=== PATIENT | male | born 1960 | race Caucasian/White ===

== ENCOUNTER → 2020-08-23 | Outpatient (CLI) | payer OTHER ==
[~2020-08-23] MED LIST: CEFAZOLIN 2 GM/D5W RTU 2 GM/50 ML RTUPB IV PRN; LACTATED RINGERS 1000 ML IV PRN
[2020-08-23 11:36] VITALS: BP 120/78
[2020-08-23 13:36] LABS: HEMATOCRIT 35.3 % (37.9-51.0); HEMOGLOBIN 12.5 g/dL (13.5-17.0); MEAN CORPUSCULAR HEMOGLOBIN 32.3 pg (27.0-33.4); MEAN CORPUSCULAR HGB CONC 35.4 g/dL (32.0-36.0); MEAN CORPUSCULAR VOLUME 91 fl (80-97); PLATELET COUNT 316 10^3/uL (150-450); RED BLOOD COUNT 3.86 10^6/uL (4.35-5.55); RED CELL DISTRIBUTION WIDTH 14.4 % (11.5-14.0); WHITE BLOOD COUNT 8.3 10^3/uL (4.0-10.5)
[2020-08-23 13:56] LABS: URINE AMPHETAMINES SCREEN NEGATIVE; URINE BARBITURATES SCREEN NEGATIVE; URINE COCAINE SCREEN NEGATIVE; URINE MARIJUANA (THC) SCREEN NEGATIVE; URINE METHADONE SCREEN NEGATIVE; URINE PHENCYCLIDINE SCREEN NEGATIVE
[2020-08-23 13:59] LABS: ANION GAP 13 (5-19); BLOOD UREA NITROGEN 24 mg/dL (7-20); CALCIUM 9.5 mg/dL (8.4-10.2); CARBON DIOXIDE 25 mmol/L (22-30); CHLORIDE 98 mmol/L (98-107); GLUCOSE 100 mg/dL (75-110); POTASSIUM 4.5 mmol/L (3.6-5.0)
[2020-08-23 14:02] LABS: APPEARANCE,URINE CLEAR; BILIRUBIN,URINE NEGATIVE (NEGATIVE); COLOR,URINE YELLOW; GLUCOSE, URINE NEGATIVE (NEGATIVE); KETONES,URINE NEGATIVE (NEGATIVE); LEUKOCYTE ESTERASE,URINE NEGATIVE (NEGATIVE); NITRITE,URINE NEGATIVE (NEGATIVE); PROTEIN,URINE NEGATIVE (NEGATIVE); URINE SPECIFIC GRAVITY 1.015; UROBILINOGEN,URINE NEGATIVE mg/dL (<2.0)
[2020-08-23 14:11] LABS: ALCOHOL < 10 mg/dL (NONE DETECTED)
--- NOTE | 2020-08-23 14:24 | RADIOLOGY REPORT (SQ) ---
EXAM DESCRIPTION: CHEST PA/LATERAL IMAGES COMPLETED DATE/TIME: 08/23/2020 1:03 pm REASON FOR STUDY: PRE-OP COMPARISON: None. EXAM PARAMETERS: NUMBER OF VIEWS: two views TECHNIQUE: Digital Frontal and Lateral radiographic views of the chest acquired. RADIATION DOSE: NA LIMITATIONS: none FINDINGS: LUNGS AND PLEURA: No opacities, masses or pneumothorax. No pleural effusion. MEDIASTINUM AND HILAR STRUCTURES: No masses or contour abnormalities. HEART AND VASCULAR STRUCTURES: Heart normal size. No evidence for failure. BONES: No acute findings. HARDWARE: None in the chest. OTHER: No other significant finding. IMPRESSION: 1. NO SIGNIFICANT RADIOGRAPHIC FINDING IN THE CHEST. TECHNICAL DOCUMENTATION: JOB ID: [id number] 2010 [employer]- All Rights Reserved Reading location - IP/workstation name: [email or web address]
[2020-08-23 14:41] LABS: URINE BENZODIAZEPINES SCREEN UNCONFIRMED POSITIVE
--- NOTE | 2020-08-23 18:06 | EKG REPORT ---
SEVERITY:- NORMAL ECG - SINUS RHYTHM : Confirmed by: Booker Mathews MD 23-Aug-2020 18:06:15
[2020-08-28 12:36] LABS: BENZODIAZEPINE CONFIRMATION UR Negative (Cutoff=300)
== END ==
LOC: OD 12:50 → EDSTATUS 08-29 09:30
PROVIDERS: ATTEND Orthopaedic Surgery
DX: Z01.810 Encounter for preprocedural cardiovascular examination (principal); Z01.812 Encounter for preprocedural laboratory examination; Z20.828 Contact with and (suspected) exposure to other viral communicable diseases; Z01.818 Encounter for other preprocedural examination; Z02.83 Encounter for blood-alcohol and blood-drug test; R74.8 Abnormal levels of other serum enzymes
CPT/HCPCS: 93005; 36415; 80307 ×2; 85027; 87635; 80048; 81001; 87070; 83036; 80361; 71046; 93010; G0480 ×2; C9803

== ENCOUNTER 2020-10-03 05:22 | Inpatient (IN) | payer OTHER ==
--- NOTE | 2020-09-28 13:07 | RADIOLOGY REPORT (SQ) ---
EXAM DESCRIPTION: CHEST 2 VIEWS IMAGES COMPLETED DATE/TIME: 09/28/2020 12:53 pm REASON FOR STUDY: PRE OP TESTING COMPARISON: PA and lateral views of the chest from 08/23/2020. EXAM PARAMETERS: NUMBER OF VIEWS: Two views. TECHNIQUE: PA and lateral views of the chest were obtained. RADIATION DOSE: NA LIMITATIONS: None. FINDINGS: LUNGS AND PLEURA: No consolidation, pleural effusion or pneumothorax. MEDIASTINUM AND HILAR STRUCTURES: No mediastinal or hilar contour abnormality. HEART AND VASCULAR STRUCTURES: The cardiac silhouette and pulmonary vasculature are within normal roper its. BONES: No acute findings. HARDWARE: None in the chest. OTHER: No other finding. IMPRESSION: No acute cardiopulmonary process. TECHNICAL DOCUMENTATION: JOB ID: [id number] 2010 [email or web address]- All Rights Reserved Reading location - IP/workstation name: [email or web address]
--- NOTE | 2020-09-28 13:24 | EKG REPORT ---
SEVERITY:- BORDERLINE ECG - SINUS RHYTHM BORDERLINE T ABNORMALITIES, ANT-LAT LEADS : Confirmed by: Angeline Machado 28-Sep-2020 13:23:25
[2020-09-28 13:32] LABS: HEMATOCRIT 39.7 % (37.9-51.0); HEMOGLOBIN 13.2 g/dL (13.5-17.0); MEAN CORPUSCULAR HEMOGLOBIN 30.3 pg (27.0-33.4); MEAN CORPUSCULAR HGB CONC 33.3 g/dL (32.0-36.0); MEAN CORPUSCULAR VOLUME 91 fl (80-97); PLATELET COUNT 290 10^3/uL (150-450); RED BLOOD COUNT 4.36 10^6/uL (4.35-5.55); RED CELL DISTRIBUTION WIDTH 13.5 % (11.5-14.0)
[2020-09-28 13:39] LABS: APPEARANCE,URINE CLEAR; BILIRUBIN,URINE NEGATIVE (NEGATIVE); COLOR,URINE YELLOW; GLUCOSE, URINE NEGATIVE (NEGATIVE); KETONES,URINE NEGATIVE (NEGATIVE); LEUKOCYTE ESTERASE,URINE NEGATIVE (NEGATIVE); NITRITE,URINE NEGATIVE (NEGATIVE); PROTEIN,URINE NEGATIVE (NEGATIVE); URINE SPECIFIC GRAVITY 1.016; UROBILINOGEN,URINE NEGATIVE mg/dL (<2.0)
[2020-09-28 13:56] LABS: URINE AMPHETAMINES SCREEN NEGATIVE; URINE BARBITURATES SCREEN NEGATIVE; URINE BENZODIAZEPINES SCREEN NEGATIVE; URINE COCAINE SCREEN NEGATIVE; URINE MARIJUANA (THC) SCREEN NEGATIVE; URINE METHADONE SCREEN NEGATIVE; URINE PHENCYCLIDINE SCREEN NEGATIVE
[2020-09-28 14:02] LABS: ANION GAP 8 (5-19); BLOOD UREA NITROGEN 22 mg/dL (7-20); CALCIUM 9.7 mg/dL (8.4-10.2); CARBON DIOXIDE 30 mmol/L (22-30); CHLORIDE 99 mmol/L (98-107); GLUCOSE 116 mg/dL (75-110); POTASSIUM 5.1 mmol/L (3.6-5.0)
[2020-09-28 14:06] LABS: ALCOHOL < 10 mg/dL (NONE DETECTED)
[~2020-10-03 05:22] MED LIST changes: +CEFAZOLIN 2 GM/D5W RTU 2 GM/50 ML RTUPB IV ONE
[2020-10-03 06:37] LABS: POTASSIUM 4.5 mmol/L (3.6-5.0)
[2020-10-03] MEDS ORDERED: HEPARIN SOD (PORCINE) 1,000 UNIT/ML 10 ML VIAL ONE (06:48)
[2020-10-03] MEDS ORDERED: BUPIVACAINE HCL 0.5 % INJ/PF 30 ML SDV ONE (06:48)
[2020-10-03] MEDS ORDERED: BACITRACIN INJ 50,000 UNIT VIAL ONE (06:49)
[2020-10-03] MEDS ORDERED: MINERAL OIL (STERILE) 10 ML VIAL ONE (06:49)
[2020-10-03] MEDS ORDERED: MIDAZOLAM 2 MG/2 ML INJ ONE (07:03)
[2020-10-03] MEDS ORDERED: MORPHINE SULFATE 10 MG/ML INJ ONE ×2 (07:03→12:08)
[2020-10-03] MEDS ORDERED: PROPOFOL INJ 200 MG/20 ML VIAL IV ONE (07:03)
[2020-10-03] MEDS ORDERED: FENTANYL CITRATE INJ/PF 250 MCG/5 ML AMPULE ONE (07:03)
[2020-10-03] MEDS ORDERED: BUPIVACAINE INJ/PF LIPOSOME/PF 266 MG/20 ML SDV ONE (08:49)
[2020-10-03] MEDS ORDERED: FENTANYL CITRATE INJ/PF 100 MCG/2 ML AMPUL IV PRN ×3 (09:26)
[2020-10-03] MEDS ORDERED: DIPHENHYDRAMINE HCL 50 MG/ML VIAL IV PRN (09:26)
[2020-10-03] MEDS ORDERED: MORPHINE SULFATE 10 MG/ML INJ IV PRN ×2 (09:26→16:30)
[2020-10-03] MEDS ORDERED: PROMETHAZINE HCL INJ 25 MG/1 ML VIAL IV PRN ×2 (09:26)
[2020-10-03] MEDS ORDERED: MEPERIDINE HCL/PF INJ 25 MG/1 ML DISP.SYRIN IV PRN (09:26)
[2020-10-03] MEDS: METHOCARBAMOL INJ/PF 1000 MG/10 ML SDV IV ONE ×2 (10:15→15:55)
--- NOTE | 2020-10-03 10:17 | Operative Report ---
Operative Report DATE OF SURGERY: 10/03/20 PREOPERATIVE DIAGNOSIS: L5-S1 spondylolisthesis. L5-S1 stenosis. L5-S1 instab ility. L5-S1 degenerative disc disease. Back pain and lumbar radiculitis. POSTOPERATIVE DIAGNOSIS: L5-S1 spondylolisthesis. L5-S1 stenosis. L5-S1 instability. L5-S1 degenerative disc disease. Back pain and lumbar radiculitis. S/P L5-S1 anterior lateral interbody fusion robotically assisted as well as posterior lateral fusion L5-S1 robotically assisted with interbody spacer at L5-S1 and instrumentation L5-S1 and left-sided iliac crest aspiration for bone marrow concentration left iliac crest through a separate incision as well as allografting OPERATION: L5-S1 anterior lateral interbody fusion robotically assisted as well as posterior lateral fusion L5-S1 robotically assisted with interbody spacer at L5-S1 and instrumentation L5-S1 and left-sided iliac crest aspiration for bone marrow concentration left iliac crest through a separate incision as well as allografting SURGEON: TARSHA LOWE SWEAT BOX ATTENDANT: KYA DOWNEY ANESTHESIA: GA COMPLICATIONS: None ESTIMATED BLOOD LOSS: 100 cc INTRAOPERATIVE FINDINGS: Solera Voyager screws 6.5 x 50 mm screws x2 at L5 and 6.5 x 40 mm screws x2 at S1 40 mm reinaldo on the right 40 mm reinaldo on the left. Calcium triphosphate DBL arise bone matrix interbody spacer at L5-S1 PROCEDURE: Patient is brought into the room placed under general anesthesia received 2 g of Ancef within 1 hour of cut time was placed on the Rey table medial epicondyles and axillary areas are well-padded. Neuro monitoring leads for SSEP and cranial motor testing are placed on the patient as well as a Grande catheter is placed preoperatively. After appropriate surgical timeout the amBX robot is utilized and on the right posterior superior iliac spine a pin is placed and attached to the robot. After obtaining registration imaging in the AP and oblique position and verification 6.5 x 50 mm screws x2 at L5 and 6.5 x 40 mm screws x2 at S1 screws are inserted using portal incisions on the right and the left at L5 and S1 bilaterally. Left iliac crest is aspirated at 2 different sites total of 50 cc of bone marrow aspirate are obtained and concentrated to be used an interbody spacer with the allograft. Attention was then paid to the left sided anterior lateral portal for entry into the disc space which is carried out under navigation guidance upon verification also with x-rays and then stimulation thresholds greater than 37 mA. Upon inserting the portal into the disc space at L5-S1 fluoroscopy was used to verify the position as it did also to verify the screws position. Endplate lyn and curettes and brushes are used to carry out a complete discectomy then the verify balloon is inserted to verify good contact with the endplates. Then the appropriate size mesh spacer is introduced into the interbody. The mesh spacer is soaked in bone marrow aspirate concentrate and is filled with bone graft showing good correction and good containment within the disc space at L5-S1. Upon neuro monitoring testing and cranial motor testing found to be stable then the portal is removed anterior laterally and attention is then paid to the placement of the rods upon using the caliper device the appropriate length rods were determined to be 40 mm rods on the right and on the left those are passed down and locked into position and final tightened. Then the tabs are removed and the portals are irrigated with copious amounts of irrigation and the posterior superior iliac spine pin connected to the robot is removed as well and the deep and superficial tissues were infiltrated with 1.3% Exparel 20 cc mixed with 20 cc of 0.5% bupivacaine plain. The portals are closed using 2-0 Vicryl and then Dermabond and Steri-Strips then 4 x 4's were used to cover the wounds on the right and the left and dressed with coverall tape. Please note that this procedure could not be done without the assistance of Sylvester Day working to assist with the placement of the screws positioning of the robot carrying out the aspiration through the left side iliac crest aspiration please also note that the iliac crest aspiration is carried out on the left side through a separate incision. Sylvester Day was instrumental throughout this whole process and I could not have done this procedure without his assistance as mentioned above.
[2020-10-03] MEDS ORDERED: METHOCARBAMOL INJ/PF 1000 MG/10 ML SDV ONE (10:18)
--- NOTE | 2020-10-03 10:32 | RADIOLOGY REPORT (SQ) ---
EXAM DESCRIPTION: L SPINE 2 VIEWS; NO CHG FLUORO IMAGES COMPLETED DATE/TIME: 10/03/2020 10:20 am REASON FOR STUDY: LUMBAR FUSION ASSISTED WITH FLUORO IN OR M43.16 SPONDYLOLISTHESIS, LUMBAR REGION M54.40 LUMBAGO WITH SCIATICA, UNSPECIFIED SIDE M51.36 OTHER INTERVERTEBRAL DISC DEGENERATION, LUMBA R REGION COMPARISON: None. FLUOROSCOPY TIME: 2 minutes. 6 images submitted to PACS. TECHNIQUE: Intra-operative fluoroscopic images of the lumbar spine were obtained during a transpedic ular fusion of L5-S1. NUMBER OF IMAGES: 6 LIMITATIONS: None. FINDINGS: Refer to the separate operative report. IMPRESSION: IMAGE(S) OBTAINED DURING PROCEDURE. COMMENT: Quality ID [id number]: Final reports for procedures using fluoroscopy that document radiation exp osure indices, or exposure time and number of fluorographic images (if radiation exposure indices are not available) Please consult full operative report of the attending physician for description of the procedure. TECHNICAL DOCUMENTATION: JOB ID: [id number] 2010 [employer]- All Rights Reserved Reading location - IP/workstation name: [email or web address]
--- NOTE | 2020-10-03 10:32 | RADIOLOGY REPORT (SQ) ---
EXAM DESCRIPTION: L SPINE 2 VIEWS; NO CHG FLUORO IMAGES COMPLETED DATE/TIME: 10/03/2020 10:20 am REASON FOR STUDY: LUMBAR FUSION ASSISTED WITH FLUORO IN OR M43.16 SPONDYLOLISTHESIS, LUMBAR REGION M54.40 LUMBAGO WITH SCIATICA, UNSPECIFIED SIDE M51.36 OTHER INTERVERTEBRAL DISC DEGENERATION, LUMBA R REGION COMPARISON: None. FLUOROSCOPY TIME: 2 minutes. 6 images submitted to PACS. TECHNIQUE: Intra-operative fluoroscopic images of the lumbar spine were obtained during a transpedic ular fusion of L5-S1. NUMBER OF IMAGES: 6 LIMITATIONS: None. FINDINGS: Refer to the separate operative report. IMPRESSION: IMAGE(S) OBTAINED DURING PROCEDURE. COMMENT: Quality ID 145: Final reports for procedures using fluoroscopy that document radiation exp osure indices, or exposure time and number of fluorographic images (if radiation exposure indices are not available) Please consult full operative report of the attending physician for description of the procedure. TECHNICAL DOCUMENTATION: JOB ID: [id number] 2010 [employer]- All Rights Reserved Reading location - IP/workstation name: [email or web address]
[2020-10-03] MEDS ORDERED: PHENYLEPHRINE HCL INJ/PF 10 MG/1 ML SDV ONE (15:38)
[2020-10-03] MEDS ORDERED: ONDANSETRON HCL INJ/PF 4 MG/2 ML SDV ONE (15:38)
[2020-10-03] MEDS ORDERED: DEXAMETHASONE SOD PHOSPHATE INJ 4 MG/1 ML VIAL ONE (15:38)
[2020-10-03] MEDS ORDERED: SUCCINYLCHOLINE CHLORIDE INJ 200 MG/10 ML VIAL ONE (15:38)
[2020-10-03] MEDS ORDERED: RINGERS SOLUTION,LACTATED 1,000 ML IV PRN (16:30)
[2020-10-03] MEDS ORDERED: DIPHENHYDRAMINE HCL 25 MG CAPSULE PO PRN (16:30)
[2020-10-03] MEDS ORDERED: ACETAMINOPHEN SOLN 325 MG/10.15 ML UDCUP PO PRN (16:30)
[2020-10-03] MEDS ORDERED: CEFAZOLIN 2 GM/D5W RTU 2 GM/50 ML RTUPB IV SCH (16:30)
[2020-10-03] MEDS ORDERED: MAGNESIUM HYDROXIDE SUSP 30 ML UDCUP PO PRN (16:30)
[2020-10-03] MEDS ORDERED: ACETAMINOPHEN 650 MG SUPP.RECT PR PRN (16:30)
[2020-10-03] MEDS ORDERED: ACETAMINOPHEN 325 MG TABLET PO SCH (16:30)
[2020-10-03] MEDS ORDERED: DIAZEPAM 5 MG TABLET PO PRN (16:30)
[2020-10-03] MEDS ORDERED: OXYCODONE HCL IR 5 MG TABLET PO SCH (16:30)
[2020-10-03] MEDS ORDERED: PROMETHAZINE HCL 25 MG TABLET PO PRN (16:30)
[2020-10-03] MEDS ORDERED: METHOCARBAMOL 750 MG TABLET PO PRN (16:30)
[2020-10-03] MEDS ORDERED: ONDANSETRON HCL INJ/PF 4 MG/2 ML SDV IV PRN (16:30)
[2020-10-03] MEDS ORDERED: OXYCODONE HCL IR 5 MG TABLET ONE (16:41)
[2020-10-03] MEDS ORDERED: OXYCODONE HCL IR 5 MG TABLET PO PRN (16:54)
[2020-10-03 17:10] VITALS: BP 143/81
[2020-10-03] MEDS ORDERED: CEFAZOLIN SODIUM 2 GM in DEXTROSE 5%-WATER 100 ML IV SCH (18:00)
[2020-10-03] MEDS ORDERED: SENNOSIDES/DOCUSATE 8.6-50 MG 1 EACH TABLET PO SCH (18:00)
[2020-10-03] MEDS ORDERED: (PENDING PHARMACY ID) (Metformin Hcl [Metformin Hcl Er] 500 MG Tab.Er.24h) PO SCH (18:00)
[2020-10-03] MEDS ORDERED: ATORVASTATIN CALCIUM 10 MG TABLET PO SCH (22:00)
[2020-10-03] MEDS ORDERED: HYDROCODONE/ACETAMINOPHEN 5-325 MG TABLET PO SCH (22:00)
[2020-10-04] MEDS ORDERED: LISINOPRIL 10 MG TABLET PO SCH (10:00)
[2020-10-04] MEDS ORDERED: VARENICLINE TARTRATE 1 MG TABLET PO SCH (10:00)
[2020-10-04] MEDS ORDERED: HYDROCHLOROTHIAZIDE 12.5 MG TABLET PO SCH (10:00)
[2020-10-05] MEDS ORDERED: BISACODYL 5 MG TABEC PO PRN (05:00)
[2020-10-05] MEDS ORDERED: BISACODYL 10 MG SUPP.RECT PR PRN (05:00)
--- NOTE | 2020-10-10 13:53 | PDOC DISCHARGE SUMMARY ---
General - Admit/Disc Date/PCP Admission Date/Primary Care Provider: 10/03/20 05:22 ALEXA IYER MD Discharge Date: 10/03/20 - Discharge Diagnosis Final Diagnosis: Post L5-S1 robotically assisted fusion and L5-S1 posterior fusion robotically assisted - Additional Information Resuscitation Status: Full Code Discharge Diet: As Tolerated, Other (Comments) Discharge Activity: Balance Activity w/Rest, No tub bath Referrals: TARSHA SHANNON MD [ASSOCIATE] - Home Medications: Atorvastatin Calcium [Lipitor 10 mg Tablet] 10 mg PO QHS 08/23/20 Hydrochlorothiazide 12.5 mg PO DAILY 08/23/20 Lisinopril [Prinivil] 10 mg PO DAILY 08/23/20 Varenicline Tartrate [Chantix 1 Mg Tablet] 1 mg PO DAILY 08/23/20 Hydrocodone/Acetaminophen [[place] 5-325 mg Tablet] 1 tab PO BID 10/03/20 Metformin HCl [Metformin HCl ER] 500 mg PO BID 10/03/20 History of Present Illiness History of Present Illness: ADRIAN BALLARD is a 59 year old male Physical Exam Vital Signs: Temp Pulse Resp BP Pulse Ox 97.9 F 62 16 143/81 H 96 10/03/20 17:08 10/03/20 17:08 10/03/20 17:08 10/03/20 17:08 10/03/20 17:08 Results Laboratory Results: WBC 7.0 10^3/uL (4.0-10.5) 09/28/20 12:21 RBC 4.36 10^6/uL (4.35-5.55) 09/28/20 12:21 Hgb 13.2 g/dL (13.5-17.0) L 09/28/20 12:21 Hct 39.7 % (37.9-51.0) 09/28/20 12:21 MCV 91 fl (80-97) 09/28/20 12:21 MCH 30.3 pg (27.0-33.4) 09/28/20 12:21 MCHC 33.3 g/dL (32.0-36.0) 09/28/20 12:21 RDW 13.5 % (11.5-14.0) 09/28/20 12:21 Plt Count 290 10^3/uL (150-450) 09/28/20 12:21 Sodium 136.8 mmol/L (137-145) L 09/28/20 12:21 Potassium 4.5 mmol/L (3.6-5.0) 10/03/20 05:46 Chloride 99 mmol/L (98-107) 09/28/20 12:21 Carbon Dioxide 30 mmol/L (22-30) 09/28/20 12:21 Anion Gap 8 (5-19) 09/28/20 12:21 BUN 22 mg/dL (7-20) H 09/28/20 12:21 Creatinine 1.12 mg/dL (0.52-1.25) 09/28/20 12:21 Est GFR ( Amer) > 60 (>60) 09/28/20 12:21 Est GFR (MDRD) Non-Af > 60 (>60) 09/28/20 12:21 Glucose 106 mg/dL (75-110) 10/03/20 05:46 Hemoglobin A1c % 5.8 % (4.7-6.0) 09/28/20 12:21 Calcium 9.7 mg/dL (8.4-10.2) 09/28/20 12:21 Urine Color YELLOW 09/28/20 12:26 Urine Appearance CLEAR 09/28/20 12:26 Urine pH 5.0 (5.0-9.0) 09/28/20 12:[address] [place] 1.016 09/28/20 12:26 Urine Protein NEGATIVE mg/dL (NEGATIVE) 09/28/20 12:26 Urine Glucose (UA) NEGATIVE mg/dL (NEGATIVE) 09/28/20 12:26 Urine Ketones NEGATIVE mg/dL (NEGATIVE) 09/28/20 12:26 Urine Blood NEGATIVE (NEGATIVE) 09/28/20 12:26 Urine Nitrite NEGATIVE (NEGATIVE) 09/28/20 12:26 Urine Bilirubin NEGATIVE (NEGATIVE) 09/28/20 12:26 Urine Urobilinogen NEGATIVE mg/dL (<2.0) 09/28/20 12:26 Ur Leukocyte Esterase NEGATIVE (NEGATIVE) 09/28/20 12:26 Urine WBC (Auto) 0 /HPF 09/28/20 12:26 Urine RBC (Auto) 1 /HPF 09/28/20 12:26 U Hyaline Cast (Auto) 10 /LPF 09/28/20 12:26 Squamous Epi Cells Auto <1 /HPF 09/28/20 12:26 Urine Mucus (Auto) RARE /LPF 09/28/20 12:26 Urine Ascorbic Acid NEGATIVE (NEGATIVE) 09/28/20 12:26 Urine Opiates Screen UNCONFIRMED POSITIVE 09/28/20 12:26 Urine Methadone Screen NEGATIVE 09/28/20 12:26 Ur Barbiturates Screen NEGATIVE 09/28/20 12:26 Ur Phencyclidine Scrn NEGATIVE 09/28/20 12:26 Ur Amphetamines Screen NEGATIVE 09/28/20 12:26 U Benzodiazepines Scrn NEGATIVE 09/28/20 12:26 Urine Cocaine Screen NEGATIVE 09/28/20 12:26 U Marijuana (THC) Screen NEGATIVE 09/28/20 12: Serum Alcohol < 10 mg/dL (NONE DETECTED) 09/28/20 12:21 COVID-19 Source See comment 09/28/20 12:15 COVID-19 ([facility]) Not Detected (Not Detect) 09/28/20 12:15 Blood Type A POSITIVE 10/03/20 05:46 Antibody Screen NEGATIVE 10/03/20 05:46 Impressions: Chest X-Ray 09/28/20 00:00 IMPRESSION: No acute cardiopulmonary process. Fluoroscopy 10/03/20 00:00 IMPRESSION: IMAGE(S) OBTAINED DURING PROCEDURE. Lumbar Spine X-Ray 10/03/20 00:00
== END 2020-10-03 17:30 | disposition home or self-care (01) | DRG 460 ==
LOC: INOR 05:22 → 4S 14:31
PROVIDERS: ADMIT Orthopaedic Surgery; ATTEND Orthopaedic Surgery
PROC: 0ST40ZZ Resection of Lumbosacral Disc, Open Approach (ICD-10-PCS; 2020-10-03)
PROC: 07DR3ZZ Extraction of Iliac Bone Marrow, Percutaneous Approach (ICD-10-PCS; 2020-10-03)
PROC: 8E0W3CZ Robotic Assisted Procedure of Trunk Region, Percutaneous Approach (ICD-10-PCS; 2020-10-03)
PROC: 0SG30A0 Fusion of Lumbosacral Joint with Interbody Fusion Device, Anterior Approach, Anterior Column, Open Approach (ICD-10-PCS; principal; 2020-10-03 07:30)
DX: M43.16 Spondylolisthesis, lumbar region (principal); M54.40 Lumbago with sciatica, unspecified side; M51.36 Other intervertebral disc degeneration, lumbar region; E78.00 Pure hypercholesterolemia, unspecified; E78.5 Hyperlipidemia, unspecified; I10 Essential (primary) hypertension; Z79.899 Other long term (current) drug therapy; Z79.84 Long term (current) use of oral hypoglycemic drugs
CPT/HCPCS: 36415; 630; 71046; 72100; 80048; 80307; 81001; 82947; 83036; 84132; 85027; 86850; 86900; 86901; 87070; 87635; 93005; 93010; C1713; C1781; C9290; C9803; J0330; J0690; J1100; J1644; J2250; J2270; J2370; J2405; J2704; J2800; J3010; J3490; Q9966